=== PATIENT | female | born 1965 | race Caucasian/White ===

== ENCOUNTER 2020-04-23 11:18 | Day surgery (SDC) | payer BC ==
[~2020-04-23] VITALS: Ht 167.6 cm; Wt 108.0 kg
[2020-04-23] MEDS ORDERED: DIPHENHYDRAMINE 50 MG/ML, 1ML IVPush ONE (12:00)
[2020-04-23] MEDS ORDERED: SODIUM CHLORIDE 0.9% 1,000 ML IV SCH ×2 (12:00→14:30)
[2020-04-23] MEDS ORDERED: DOCU-131 PO (12:25)
[2020-04-23] MEDS ORDERED: DILT30TA33 PO (12:25)
[2020-04-23] MEDS ORDERED: ALBU8.5H8 INH (12:25)
[2020-04-23] MEDS ORDERED: FLUT1BLS3 IH (12:26)
[2020-04-23] MEDS ORDERED: ALPR0.5T7 PO (12:26)
[2020-04-23] MEDS ORDERED: PRED10TA PO (12:26)
[2020-04-23] MEDS ORDERED: ACET600C6 PO (12:26)
[2020-04-23] MEDS ORDERED: OXYC-307 PO (12:26)
[2020-04-23] MEDS ORDERED: FURO20TA3 PO (12:26)
[2020-04-23] MEDS ORDERED: HYDROCHLOROTH12.5 MG PO (12:26)
[2020-04-23] MEDS ORDERED: IPRA3AMP30 NEB (12:26)
[2020-04-23] MEDS ORDERED: THEO300T26 PO (12:26)
[2020-04-23 12:31] VITALS: BP 105/64
[2020-04-23] MEDS ORDERED: DIPHENHYDRAMINE 50 MG/ML, 1ML ONE (13:06)
[2020-04-23] MEDS ORDERED: LIDOCAINE 2%, 20ML ONE (13:09)
[2020-04-23] MEDS ORDERED: FENTANYL PF 100 MCG/2ML ONE ×2 (13:09→14:51)
[2020-04-23] MEDS ORDERED: MIDAZOLAM 1 MG/ML, 5ML ONE (13:09)
[2020-04-23] MEDS ORDERED: VERAPAMIL 2.5 MG/ML, 2ML ONE (13:40)
[2020-04-23] MEDS ORDERED: NITROGLYCERIN 30 MCG/ML, 20ML VIAL ONE (13:40)
[2020-04-23] MEDS ORDERED: HEPARIN 1,000 UNITS/ML, 10ML ONE (13:44)
[2020-04-23] MEDS ORDERED: POTASSIUM CHLORIDE 20 MEQ TAB.ER.PRT PO ONE (15:00)
[2020-04-23] MEDS ORDERED: FENTANYL PF 100 MCG/2ML IVPush ONE (15:00)
== END 2020-04-23 16:45 | disposition home or self-care (01) ==
LOC: CACL 11:18
PROVIDERS: ATTEND Internal Medicine Cardiovascular Disease
DX: I27.20 Pulmonary hypertension, unspecified (principal); J44.9 Chronic obstructive pulmonary disease, unspecified; F17.210 Nicotine dependence, cigarettes, uncomplicated; Z88.8 Allergy status to other drugs, medicaments and biological substances; Z88.1 Allergy status to other antibiotic agents; Z79.899 Other long term (current) drug therapy; Z98.890 Other specified postprocedural states
CPT/HCPCS: 36415; 82330; 82803; 82947; 84132; 84295; 85014; 93460; 99156; 99157; C1760; C1769; C1894; J1200; J1644; J2250; J3010; Q9967